=== PATIENT | male | born 1995 | race Caucasian/White ===

== ENCOUNTER 2020-11-06 09:08 | Emergency (ER) | payer SELFPAY ==
[~2020-11-06] VITALS: Ht 175.3 cm; Wt 68.0 kg
[2020-11-06 09:23] VITALS: BP 138/94
[2020-11-06] MEDS ORDERED: AMOX1TAB58 PO (09:32)
--- NOTE | 2020-11-06 09:32 | PHYS DOC ---
Past History Past Medical History: No Pertinent History Past Surgical History: Other Smoking: Less than 1pk/day Alcohol Use: None Drug Use: None Adult General Chief Complaint Chief Complaint: SKIN PROBLEM [facility] Patient is a 24-year-old male who presents to the emergency room complaining of lesions on his right and left inner thigh. He states that he started as small pimples and then he pops them. They then become much larger and erythematous. There painful but not itchy. He denies any kind of fever. He has been trying to treat them at home without any success. Review of Systems Review of Systems Complete ROS is negative unless otherwise documented in HPI Allergies Allergies Allergies Coded Allergies Type Severity Reaction Last Updated Verified No Known Allergies Allergy Unknown 11/25/16 Yes Physical Exam Physical Exam General: Awake, alert, NAD. Well Nourished, well hydrated. Cooperative HEENT: Atraumatic, EOMI, PERRL, airway patent, moist oral mucosa Neck: Supple, trachea midline Skin: Warm, dry, intact. Right inner thigh: Several small 1x1 cm lesions that are erythematous and indurated without any fluctuance Neuro: A&O x3, speech NL, sensory and motor grossly intact, no focal deficits Psych: Normal affect, normal mood, not suicidal or homicidal EKG EKG [] Radiology/Procedures Radiology/Procedures [] Heart Score Risk Factors: Risk Factors: DM, Current or recent (<one month) smoker, HTN, HLP, family history of CAD, obesity. Risk Scores: Risk Factors: DM, Current or recent (<one month) smoker, HTN, HLP, family history of CAD, obesity. Course & Med Decision Making Course & Med Decision Making Pertinent Labs and Imaging studies reviewed. (See chart for details) Patient is 24-year-old male presents to the emergency room complaining of infected folliculitis. He does have areas of surrounding cellulitis. Will treat with antibiotics. Discussed with patient not to try to pop these lesions and proper cleaning techniques. Patient's test results and vitals while in the ED were fully reviewed and discussed with the patient. Patient is stable and at this time does not need admission to the hospital. We have discussed strict return precautions and the importance of following up with their Primary Care Physician. Patient stated understanding and was given an opportunity to ask any questions. Patient is in agreement with plan. Williams Disclaimer Dragon Disclaimer This electronic medical record was generated, in whole or in part, using a voice recognition dictation system. Departure Departure: Impression: Primary Impression: Cellulitis Disposition: DC HOME SELF CARE/HOMELESS Referrals: PCP,ERIC (PCP) Patient Instructions: Folliculitis Scripts Amoxicillin/Potassium Clav (AUGMENTIN 500-125 TABLET) 1 Each Tablet 1 TAB PO BID for cellulitis for 7 Days, #14 TAB 0 Refills Prov: PADMAJA LEPE MD 11/06/20 PADMAJA LEPE MD Nov 06, 2020 09:32
== END 2020-11-06 09:30 | disposition home or self-care (01) ==
LOC: ER 09:08
DX: L03.115 Cellulitis of right lower limb (principal); F17.200 Nicotine dependence, unspecified, uncomplicated
CPT/HCPCS: 99283

== ENCOUNTER 2021-05-01 12:42 | Emergency (ER) | payer OTHER ==
[~2021-05-01] VITALS: Ht 175.3 cm; Wt 68.0 kg
[~2021-05-01 12:42] MED LIST: AMOX1TAB58 PO
--- NOTE | 2021-05-01 13:58 | PHYS DOC ---
Past History Past Medical History: No Pertinent History Past Surgical History: No Surgical History, Other Additional Past Surgical Histo: tubes in ears at 16 years old Smoking: Less than 1pk/day Alcohol Use: None Drug Use: None General Adult EDM: Chief Complaint: FINGER INJURY HPI: HPI: Patient is a 25-year-old male being seen in the ER for a laceration to his right second finger. Patient reports that he was cleaning something metal at work and his hand slipped and cut the tip of his finger last night around 2330. Patient rates pain to his finger 7 out of 10, does not radiate, no treatment prior to arrival. Patient is unsure of his last tetanus shot. Patient denies decreased range of motion or sensation to his finger. Review of Systems: Review of Systems: 14 body systems of the review of systems have been reviewed. See HPI for pertinent positive and negative responses, otherwise all other systems are negative, nonpertinent or noncontributory Allergies: Allergies: Allergies Coded Allergies Type Severity Reaction Last Updated Verified No Known Allergies Allergy Unknown 11/25/16 Yes Physical Exam: PE: Constitutional: Well developed, well nourished, no acute distress, non-toxic appearance. [] HENT: Normocephalic, atraumatic Eyes: PERRL, conjunctiva normal, no discharge. [] Neck: Normal range of motion, no stridor Cardiovascular: Normal peripheral perfusion Lungs & Thorax: Normal work of breathing, no tachypnea Skin: Warm, dry, no erythema, no rash. [] Back: Normal range of motion Extremities: No tenderness, no cyanosis, no clubbing, ROM intact, no edema. Right index finger: Avulsion noted to the tip of finger with no exposed bone, active bleeding, nailbed intact, range of motion intact, neuro intact. [] Neurologic: Alert and oriented X 3, normal motor function, normal sensory function, no focal deficits noted. [] Psychologic: Affect normal, judgement normal, mood normal. [] Current Patient Data: Vital Signs: Vital Signs Date Time Temp Pulse Resp B/P (MAP) Pulse Ox O2 Delivery O2 Flow Rate FiO2 05/01/21 12:58 98.1 104 18 141/88 98 Room Air EKG: EKG: [] Radiology/Procedures: Radiology/Procedures: PROCEDURE: FINGER(S) RIGHT XR FINGER(S)_RIGHT 2+VIEWS History: Reason: r. index finger avulsion / Spl. Instructions: / History: Technique: AP view the hand and 2 additional views of the second digit. Comparison: None. Findings: Normal alignment. No fracture. Second digit soft tissue injury. Impression: 1. No acute osseous abnormality. 2. Second digit soft tissue injury. Electronically signed by: Jovani Manjarrez DO (05/01/2021 2:55 PM) [id number] DICTATED AND SIGNED BY: JOVANI MANJARREZ DO DATE: 05/01/21 1453 CC: ROE BURDEN APRN; PCP,NO ~MTH0 0 Heart Score: C/O Chest Pain: No Risk Factors: Risk Factors: DM, Current or recent (<one month) smoker, HTN, HLP, family history of CAD, obesity. Risk Scores: Score 0 - 3: 2.5% MACE over next 6 weeks - Discharge Home Score 4 - 6: 20.3% MACE over next 6 weeks - Admit for Clinical Observation Score 7 - 10: 72.7% MACE over next 6 weeks - Early Invasive Strategies Course & Med Decision Making: Course & Med Decision Making Pertinent Labs and Imaging studies reviewed. (See chart for details) Patient is a 25-year-old male being seen in the ER for a right index finger tip avulsion. X-ray was performed of the finger that was negative for any acute findings. Patient's tetanus was updated in the ER. He was also given pain medication. Patient is finger was cleansed in the ER. Gelfoam and dressing applied to finger. Bleeding has stopped. Patient's wound dressed with nonadherent dressing prior to discharge. I discussed with patient all findings and diagnostic testing as well as the need to follow-up with PCP for further evaluation and treatment or return to the ER if any new or worsening symptoms. Strict return precautions were also discussed at length. Patient voiced understanding and agreement with the plan. Patient is hemodynamically stable at the time of disposition. Williams Disclaimer: Williams Disclaimer: This electronic medical record was generated, in whole or in part, using a voice recognition dictation system. Departure Departure: Impression: Primary Impression: Fingertip avulsion Qualified Codes: S61.209A - Unspecified open wound of unspecified finger without damage to nail, initial encounter Disposition: HOME / SELF CARE / HOMELESS Condition: GOOD Referrals: PCP,NO (PCP) Patient Instructions: Finger Avulsion Additional Instructions: Thank you for choosing [facility] and allowing me to participate in your care. As we have discussed, your findings indicate no acute fracture of your finger. You had a dressing placed to stop the bleeding. Your tetanus was also updated.. As we have discussed, the treatment includes cleaning wound with warm water and soap and nonadherent dressings. Please follow up with your primary care provider tomorrow regarding your ER visit. You must follow-up with your primary care doctor or return within 2 days for a wound recheck. If your symptoms worsen or you develop uncontrollable bleeding, severe pain, decreased range of motion of finger, decreased sensation of finger, please return. EMERGENCY DEPARTMENT GENERAL DISCHARGE INSTRUCTIONS Thank you for coming to [facility] ([facility]) today and trusting us with you care. We trust that you had a positivie experience in our Emergency Department. If you wish to speak to the department management, you may call the director at [phone]. YOUR FOLLOW UP INSTRUCTIONS ARE FOLLOWS: 1. Do you have a private Doctor? If you do not have a private doctor, please ask for a resource list of physicians or clinics that may be able to assist you with follow up care. 2. The Emergency Physician has interpreted your x-rays. The X-Ray specialist will also review them. If there is a change in the findings, you will be notified in 48 hours when at all possible. 3. A lab test or culture has been done, your results will be reviewed and you will be notified if you need a change in treatment. ADDITIONAL INSTRUCTIONS AND INFORMATION: 1. Your care today has been supervised by a physician who is specially trained in emergency care. Many problems require more than one evaluation for a complete diagnosis and treatment. We recommend that you schedule your follow up appointment as recommended to ensure complete treatment of you illness or injury. If you are unable to obtain follow up care and continue to have a problem, or if your condition worsens, we recommend that you return to the ED. 2. We are not able to safely determine your condition over the phone nor are we able to give sound medical advice over the phone. For these safety reasons, if you call for medical advice we will ask you to come to the ED for further evaluation. 3. If you have any questions regarding these discharge instructions please call the ED at [phone]. SAFETY INFORMATION: In the interest of safety, wellness, and injury prevention; we encourage you to wear your sealbelt, if you smoke; quite smoking, and we encourage family to use a protective helmet for bicycling and other sporting events that present an increased risk for head injury. IF YOUR SYMPTOMS WORSEN OR NEW SYMPTOMS DEVELOP, OR YOU HAVE CONCERNS ABOUT YOUR CONDITION; OR IF YOUR CONDITION WORSENS WHILE YOU ARE WAITING FOR YOUR FOLLOW UP APPOINTMENT; EITHER CONTACT YOUR PRIMARY CARE DOCTOR, THE PHYSICIAN WHOSE NAME AND NUMBER YOU WERE GIVEN, OR RETURN TO THE ED IMMEDIATELY. ROE BURDEN RESIN COATER May 01, 2021 13:58
[2021-05-01] MEDS ORDERED: HYDROcodone/APAP 5/325MG 1 TAB TABLET PO ONE (14:00)
[2021-05-01] MEDS ORDERED: DIPH,PERTUSS(ACELL),TET VAC/PF 0.5 ML SYRINGE. VAX IM ONE (14:00)
[2021-05-01] MEDS ORDERED: GELATIN SPONGE SIZE 12-7MM SPONGE. ONE (14:22)
[2021-05-01] MEDS ORDERED: GELATIN SPONGE SIZE 12-7MM SPONGE. TP ONE (14:30)
--- NOTE | 2021-05-01 14:58 | RAD ---
XR FINGER(S)_RIGHT 2+VIEWS History: Reason: r. index finger avulsion / Spl. Instructions: / History: Technique: AP view the hand and 2 additional views of the second digit. Comparison: None. Findings: Normal alignment. No fracture. Second digit soft tissue injury. Impression: 1. No acute osseous abnormality. 2. Second digit soft tissue injury. Electronically signed by: Jan Agarwal DO (05/01/2021 2:55 PM) [id number]
[2021-05-01 15:44] VITALS: BP 131/81
== END 2021-05-01 15:44 | disposition home or self-care (01) ==
LOC: ER 12:42
DX: S61.300A Unspecified open wound of right index finger with damage to nail, initial encounter (principal); F17.200 Nicotine dependence, unspecified, uncomplicated; Z23 Encounter for immunization; W26.8XXA Contact with other sharp object(s), not elsewhere classified, initial encounter; Y93.89 Activity, other specified; Y92.89 Other specified places as the place of occurrence of the external cause; Y99.8 Other external cause status
CPT/HCPCS: 73140; 90471; 90715; 99283

== ENCOUNTER 2021-12-06 13:02 | Emergency (ER) | payer SELFPAY ==
[~2021-12-06] VITALS: Ht 180.3 cm; Wt 67.4 kg
[2021-12-06 13:02] VITALS: BP 142/81
[2021-12-06] MEDS ORDERED: POLY10DR EACHEYE (13:25)
--- NOTE | 2021-12-06 13:26 | PHYS DOC ---
Past History Past Medical History: No Pertinent History Past Surgical History: No Surgical History, Other Additional Past Surgical Histo: tubes in ears at 16 years old Smoking: Less than 1pk/day Alcohol Use: None Drug Use: None General Adult EDM: Chief Complaint: EYE PROBLEMS HPI: HPI: Patient is a 25-year-old male coming in for bilateral eye irritation, discharge, and redness. Patient states he had minor symptoms he went to bed but woke up with his eyelids matted shut. Patient denies any known sick contacts. Patient denies any activities that could cause a foreign body or chemical exposure. He does not wear contacts or glasses. Says he has some mild irritation but no increased pain with eye movements, light, or blinking Review of Systems: Review of Systems: All other systems within normal limits except for as noted in the HPI Allergies: Allergies: Allergies Coded Allergies Type Severity Reaction Last Updated Verified No Known Allergies Allergy Unknown 11/25/16 Yes Physical Exam: PE: Constitutional: Well developed, well nourished, no acute distress, non-toxic appearance. [] HENT: Normocephalic, atraumatic, bilateral external ears normal, nose normal. [] Eyes: PERRLA, dried mucus-like discharge in base of lashes. Erythema of bilateral conjunctiva. Extraocular muscles intact. No visible foreign bodies or focal redness Neck: No rigidity, supple, no stridor. [] Cardiovascular: Regular rate and rhythm, brisk cap refill [] Lungs & Thorax: Non labored symmetric respirations, no tachypnea or respiratory distress [] Abdomen: Soft, nondistended. Skin: Warm, dry, no erythema, no rash. [] Back: Unremarkable Extremities: No deformities, range of motion grossly intact, no lower extremity edema [] Neurologic: Alert and oriented X 3, no focal deficits noted. [] Psychologic: Affect normal, judgement normal, mood normal. [] EKG: EKG: [] Radiology/Procedures: Radiology/Procedures: [] Heart Score: C/O Chest Pain: No Risk Factors: Risk Factors: DM, Current or recent (<one month) smoker, HTN, HLP, family history of CAD, obesity. Risk Scores: Score 0 - 3: 2.5% MACE over next 6 weeks - Discharge Home Score 4 - 6: 20.3% MACE over next 6 weeks - Admit for Clinical Observation Score 7 - 10: 72.7% MACE over next 6 weeks - Early Invasive Strategies Course & Med Decision Making: Course & Med Decision Making Pertinent Labs and Imaging studies reviewed. (See chart for details) [] Dragon Disclaimer: Draglito Disclaimer: This electronic medical record was generated, in whole or in part, using a voice recognition dictation system. Departure Departure: Impression: Primary Impression: Acute conjunctivitis, bilateral Disposition: HOME / SELF CARE / HOMELESS Condition: STABLE Referrals: PCP,NO (PCP) Patient Instructions: Bacterial Conjunctivitis, [id number] Scripts Polymyxin B Sulf/Trimethoprim (POLYTRIM EYE DROPS) 10 Ml Drops 1 DROP EACHEYE Q6HRS for 2 for 7 Days, #10 ML Prov: CANDIDA SHARP MD 12/06/21 CANDIDA SHARP MD Dec 06, 2021 13:26
== END 2021-12-06 13:28 | disposition home or self-care (01) ==
LOC: ER 13:02
DX: H10.33 Unspecified acute conjunctivitis, bilateral (principal); F17.200 Nicotine dependence, unspecified, uncomplicated
CPT/HCPCS: 99283